=== PATIENT | female | born 1995 | race Two or more races ===

== ENCOUNTER 2021-01-19 12:45 | Inpatient (IN) | payer OTHER ==
[~2021-01-19] VITALS: Ht 170.2 cm; Wt 73.5 kg
[2021-01-31] MEDS ORDERED: PRIMACARE SOFT1 EACH PO (06:43)
== END 2021-02-02 14:32 | disposition home or self-care (01) | DRG 807 ==
LOC: LDR 01-31 06:18 → OB/GYN 01-31 06:18
PROVIDERS: ADMIT Obstetrics & Gynecology; ATTEND Obstetrics & Gynecology
PROC: 10E0XZZ Delivery of Products of Conception, External Approach (ICD-10-PCS; principal; 2021-01-31)
PROC: 0KQM0ZZ Repair Perineum Muscle, Open Approach (ICD-10-PCS; 2021-01-31)
PROC: 10907ZC Drainage of Amniotic Fluid, Therapeutic from Products of Conception, Via Natural or Artificial Opening (ICD-10-PCS; 2021-01-31)
PROC: 3E033VJ Introduction of Other Hormone into Peripheral Vein, Percutaneous Approach (ICD-10-PCS; 2021-01-31)
PROC: 4A1HXFZ Monitoring of Products of Conception, Cardiac Rhythm, External Approach (ICD-10-PCS; 2021-01-31)
DX: O48.0 Post-term pregnancy (principal); Z37.0 Single live birth; O70.1 Second degree perineal laceration during delivery; Z3A.40 40 weeks gestation of pregnancy